=== PATIENT | female | born 1940 | race Caucasian/White ===

== ENCOUNTER 2016-07-21 04:16 | Observation (INO) | payer OTHER, SELFPAY ==
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
[2016-07-21 02:06] LABS: BASOPHILS 0.4 %; BASOPHILS ABSOLUTE 0.03 10/3/uL (0.0-0.16); EOSINOPHILS 2.4 %; EOSINOPHILS ABSOLUTE 0.18 10/3/uL (0.0-0.53); ER CBC TAT 0 Hrs 05 Mins; IMMATURE GRANULOCYTES 0.3 %; IMMATURE GRANULOCYTES ABSOLUTE 0.02 10/3/uL (0.0-0.11); LYMPHOCYTES 31.9 %; LYMPHOCYTES ABSOLUTE 2.35 10/3/uL (0.67-4.30); MEAN PLATELET VOLUME 9.8 fL (9.2-13.0); MONOCYTES 7.1 %; MONOCYTES ABSOLUTE 0.52 10/3/uL (0.21-1.20); NEUTROPHILS 57.9 %; NEUTROPHILS ABSOLUTE 4.27 10/3/uL (2.02-8.40); PLATELET COUNT 221 10/3/uL (150-400); RBC DISTRIBUTION WIDTH 13.3 % (12.0-16.0); RED CELL COUNT 5.37 10/6/uL (4.0-5.6); WHITE BLOOD CELLS 7.4 10/3/uL (4.5-10.5)
[2016-07-21 02:09] LABS: HEMOGLOBIN 15.9 g/dL (12.0-16.0); MANUAL DIFF NO %; MEAN CORPUS HGB CONC 34.6 g/dL (32.0-36.0); MEAN CORPUSCULAR HEMOGLOB 29.6 pg (26.0-34.0); MEAN CORPUSCULAR VOLUME 85.7 fL (80-100)
[2016-07-21 02:18] LABS: INTERNATIONAL NORMAL RATI 1.5 UNITS (-); PARTIAL THROMBO TIME 32.9 SEC (22.5-37.2); PROTIME (NOT ORD) 17.9 SEC (12.0-14.5)
[2016-07-21 02:20] LABS: CHEST PAIN PROFILE TAT 0 Hrs 19 Mins; CHLORIDE, SERUM 106 MMOL/L (96-112); CO2 (CARBON DIOXIDE) 28 MMOL/L (24-34); CREATININE 0.61 MG/DL (0.55-1.02); GFR AFRICAN AMERICAN 101 ML/MIN (>=60); GFR NON AFRICAN AMERICAN 87 ML/MIN (>=60); SODIUM, SERUM 143 MMOL/L (135-148); TROPONIN I <0.02 NG/ML (<0.05)
[2016-07-21 02:21] LABS: BUN (BLOOD UREA NITROGEN) 7 MG/DL (6-23); GLUCOSE, SERUM 192 MG/DL (60-99); POTASSIUM, SERUM 3.3 MMOL/L (3.5-5.3)
[~2016-07-21 04:16] MED LIST: AMARYL1 MG PO; AMARYL2 PO; ASAB PO; C2 PO; CEFT2 PO; COUMADIN4 MG PO; COZAAR100 MG PO; FORTAMET500 MG PO; GLUCOPHXR PO; GLUCPH PO; I40 PO; INDAPAMIDE1.25 MG PO; JANTOVEN5 MG PO; KLOR-CON M2020 MEQ PO; LIPITOR20 PO; LOZOLTAB PO; MAGOX4 PO; MYCAMINE100 MG IV; NORCO1 TA2 PO; OXYCODONE; PCET PO; SEPTRA DS1 TAB PO; TRADJENTA5 MG PO; TRILIPIX135 MG PO; ZOCOR40 PO
[2016-07-21] MEDS ORDERED: NEUR300 PO (04:25)
[2016-07-21] MEDS ORDERED: NORV5 PO (04:25)
[2016-07-21] MEDS ORDERED: AMARYL2 PO (04:26)
[2016-07-21] MEDS ORDERED: LEVEMFLXPN SC (04:27)
[2016-07-21] MEDS ORDERED: COZAAR100 MG PO (04:28)
[2016-07-21] MEDS ORDERED: GLUCPH PO (04:29)
[2016-07-21] MEDS ORDERED: C5 PO (04:29)
[2016-07-21] MEDS ORDERED: COUMADIN6 MG PO (16:33)
== END 2016-07-21 16:58 | disposition home or self-care (01) ==
LOC: ER 04:16 → CDU1 04:39 → CDU2 05:38
PROVIDERS: Specialist
DX: R07.89 Other chest pain (principal); R60.0 Localized edema; E11.8 Type 2 diabetes mellitus with unspecified complications; E78.2 Mixed hyperlipidemia; K21.9 Gastro-esophageal reflux disease without esophagitis; E89.0 Postprocedural hypothyroidism; E78.00 Pure hypercholesterolemia, unspecified; I10 Essential (primary) hypertension; Z86.718 Personal history of other venous thrombosis and embolism; Z80.3 Family history of malignant neoplasm of breast; Z87.442 Personal history of urinary calculi; Z90.710 Acquired absence of both cervix and uterus; Z79.01 Long term (current) use of anticoagulants; Z79.899 Other long term (current) drug therapy; Z91.041 Radiographic dye allergy status; Z88.8 Allergy status to other drugs, medicaments and biological substances; Z82.49 Family history of ischemic heart disease and other diseases of the circulatory system; Z98.890 Other specified postprocedural states; Z79.4 Long term (current) use of insulin
CPT/HCPCS: 71020; 78452; 80048; 82962; 83735; 84484; 85025; 85610; 85730; 93005; 93017; 93970; 99285; A9270-GY; A9502; G0378